=== PATIENT | female | born 1955 | race Caucasian/White ===

== ENCOUNTER → 2019-09-29 15:01 | Outpatient (BNVA) | payer OTHER, SELFPAY | PROVIDERS: Visit Provider Specialist | DX: M25.552 Pain in left hip (principal); T84.84XA Pain due to internal orthopedic prosthetic devices, implants and grafts, initial encounter | CPT/HCPCS: 73503 ==

== ENCOUNTER 2019-10-12 08:13 | Outpatient (CLI) | payer MEDICARE, OTHER, SELFPAY ==
--- NOTE | 2019-10-12 11:00 | NM_ITS ---
WS: [id number] Nuclear medicine whole body bone scan, three-phase emphasis on the hips, 10/12/2019 Clinical Data: Painful Orthopedic Hardware Comparison: Left hip, 09/29/2019. Findings: After the intravenous injection of 26.3 mCi of technetium 99m HDP blood flow imaging of the pelvis and hips were obtained. There was normal blood flow. Blood pool imaging in the anterior and posterior projection of the pelvis and hips showed normal bloo d flow. There is increased activity over the mid sternum, 2 anterior right ribs and 3 anterior left ribs. The re is also increased uptake over the lateral aspect of the right femoral condyle. The patient gives a history of a recent fall injuring her sternum and probably her ribs and right knee. There is no abno rmal activity over the left hip.There is a slight decrease in activity over the entire medullary oleksandr l of the left femur from the patient's intramedullary josse. NM/NM bone 3 phase [id number] Impression: 1. Increased activity over the sternum, anterior ribs and right lateral femoral condyle probably from a recent injury. 2. No abnormal activity over the left hip.
== END 2019-10-12 08:14 | disposition home or self-care (01) ==
LOC: RAD 08:19
PROVIDERS: Visit Provider Specialist
DX: T84.84XA Pain due to internal orthopedic prosthetic devices, implants and grafts, initial encounter (principal); Y83.8 Other surgical procedures as the cause of abnormal reaction of the patient, or of later complication, without mention of misadventure at the time of the procedure
CPT/HCPCS: 78315; A9561

== ENCOUNTER 2024-04-03 13:19 | Inpatient (IN) | payer MEDICARE, OTHER, SELFPAY ==
[2024-04-03] VITALS (13 sets, daily range): BP systolic 126–154; BP diastolic 70–86; PULSE 58–71; RESP 17–22; TEMP 36.6–36.9; O2SAT 94–100; BMI 33.0
--- NOTE | 2024-04-03 13:30 | XRR_ITS ---
PROCEDURE INFORMATION: Exam: XR Right Wrist Exam date and time: 04/03/2024 1:39 PM Age: 68 years old Clinical indication: Injury or trauma; Fall; Blunt trauma (contusions or hematomas); Wrist; Right; Prior surgery; Surgery date: 6+ months; Additional info: Fall/pain/previous surgery TECHNIQUE: Imaging protocol: Radiologic exam of the right wrist. Views: 3 or more views. COMPARISON: No relevant prior studies available. FINDINGS: Bones/joints: Acute fracture through distal shaft of radius, proximal to plate and screw fixation. Very minimal displacement. Bone mineralization is normal. Old fracture fixation of the distal radius noted. Old fracture of distal ulnar styloid process noted. Soft tissues: Normal. XR/XR wrist RT min 3V* [id number] IMPRESSION: Acute fracture through distal 3rd shaft of radius, proximal to plate and screw fixation.
--- NOTE | 2024-04-03 13:30 | XRR_ITS ---
PROCEDURE INFORMATION: Exam: XR Right Hip Exam date and time: 04/03/2024 1:44 PM Age: 68 years old Clinical indication: Injury or trauma; Fall; Blunt trauma (contusions or hematomas); Hip; Prior surgery; Surgery date: 6+ months; Surgery type: Left femur SX but pain today is on the right side; Additional info: With pelvis TECHNIQUE: Imaging protocol: Radiologic exam of the right hip. Views: 1 view hip with pelvis when performed. COMPARISON: No relevant prior studies available. FINDINGS: Bones/joints: Acute intertrochanteric fracture of right proximal femur with minimal impaction. No dislocation. Visualized left proximal femur show fixation hardware. Soft tissues: Unremarkable. XR/XR hip RT 2-3V wo/w pel* [id number] IMPRESSION: Acute intertrochanteric fracture of the right proximal femur with minimal impaction.
[2024-04-03] MEDS: HYDROmorphone 1 mg/mL INJ 1 mL 0.4 MG IVP (13:37)
--- NOTE | 2024-04-03 13:49 | W.ED.FALL ---
HPI - Fall General: Chief Complaint: Fall Stated Complaint: right hip/wrist pain s/p fall Time Seen by Provider: 04/03/24 13:26 Source: patient Mode of arrival: EMS Limitations: no limitations History of Present Illness: Patient is a 68-year-old female who presents the emergency department via ambulance due to a fall about an hour prior to arrival. Patient states she took too big of a step down a stepladder, lost her footing and fell onto her right hip and wrist. She has previous surgery to the right wrist, states pain is to the volar aspect just inferior to the wrist joint. She does seem to have mild external rotation of her right lower extremity and proximal femur is significantly painful. States initially pain was not too severe as she denied pain medicine by ambulance, however states that is increasing. She did not hit her head and has no other injuries to report with the fall. Is not on a blood thinner. Is requesting something for pain at this time. Upon further review of patient's medical history she does have a history of hip surgery to the left hip. complaint: fall Onset (ago): hour(s) Fall from: from height (distance) (A couple of feet, down a stepladder) Place fall occurred: home Loss of consciousness: None Prolonged down time: no Symptoms prior to fall: none Context: tripped/slipped Location of injury - extremities: Right: forearm and thigh Severity: severe Associated symptoms-after fall: Denies abdominal pain, chest pain, headache(s) or neck pain Related Data Home Medications Medication Instructions Recorded Confirmed No Known Home Medications 09/29/19 09/29/19 Allergies Allergy/AdvReac Type Severity Reaction Status Date / Time No Known Allergies Allergy Verified 09/29/19 15:15 Review of Systems General: Reports: 10 or more systems reviewed and unremarkable except in HPI and below Const: Reports: other (Fall); Denies: fever(s) or chills Card: Denies: chest pain Resp: Denies: dyspnea or productive cough GI: Denies: abdominal pain, nausea, vomiting or diarrhea : Denies: flank pain Musc: Reports: extremity pain (Right proximal femur), joint pain (Right wrist and right hip) and limited range of motion; Denies: neck pain, back pain, extremity swelling, joint swelling, joint redness, joint warmth or muscle weakness Skin/Breast: Denies: rash Neuro: Denies: headache(s), numbness in extremities or weakness in extremities PFSH ED PFSH: Social History Smoking and tobacco/nicotine status: never used tobacco/nicotine Alcohol intake: current Alcohol intake frequency: few times a week Substance/Drug Use: never Physical Exam Const: COMMON NORMALS: no acute distress, patient oriented x3, no limitations, healthy appearing, alert and well nourished HENMT: COMMON NORMALS: normocephalic and atraumatic HEAD & SCALP: normocephalic and atraumatic Neck/C-Spine: COMMON NORMALS: full ROM, supple and no meningeal signs Resp: COMMON NORMALS: normal respiratory effort, No use of accessory muscles and clear to auscultation bilaterally AUSCULTATION: clear to auscultation bilaterally Cardio: COMMON NORMALS: regular rate and regular rhythm RATE: regular rate RHYTHM: regular rhythm GI: COMMON NORMALS: Soft to palpation and non-tender PALPATION: Yes Soft to palpation Extremity: COMMON NORMALS: capillary refill normal, no joint enlargement and no clubbing, cyanosis or edema NARRATIVE EXTREMITY EXAM: There does seem to be chronic deformity of the right wrist from prior surgery/injury. Does currently have some tenderness to palpation of the volar aspect of the right wrist joint, possibly just inferior to this with no obvious signs of new trauma or deformity. Her distal neurovascular status in her right upper extremity is intact and she does have good radial pulse. Normal elbow examination. Her right lower extremity does appear to be mildly shortened and externally rotated. No significant tenderness to palpation of the lateral hip joint, though there is severe tenderness to palpation of the proximal femur. Distal neurovascular status also intact with the right lower extremity with no focal sensory deficits. Normal knee and ankle exam. All other joints palpated and normal. Neuro: COMMON NORMALS: patient oriented x3, moves all extremities, no focal motor deficits and no sensory deficits noted SENSORIUM/ORIENTATION: Yes alert MENINGEAL SIGNS: Yes no meningeal signs Skin: COMMON NORMALS: no rashes or lesions noted GENERAL SKIN EXAM: no rashes or lesions noted Course Vital Signs: Vital signs: Vital Signs Temperature 97.8 F 04/03/24 13:23 Pulse Rate 64 04/03/24 14:23 Respiratory Rate 17 04/03/24 14:23 Blood Pressure 128/70 04/03/24 14:23 Pulse Oximetry 100 04/03/24 14:23 Oxygen Delivery Me thod Room Air 04/03/24 14:23 MDM - Fall Medical Decision Making Patient brought in by ambulance after a fall about an hour prior to arrival. History of previous fracture and surgical fixation of the right wrist, of which she also injured today in the fall. Also has surgical history of left hip surgery many years ago. Right Leg did appear shortened and externally rotated on physical exam, distal neurovascular status intact. X-ray of the right hip did reveal a intertrochanteric fracture with mild impaction, nondisplaced. In addition, an x-ray of the right wrist showed intact hardware however a small distal third radius fracture that we will be splinted at this time with sugar-tong splint. Dr. Goodrich was consulted and will see the patient on Friday pending admission to the hospital. Spoke with Dr. Domingo who kindly accepts the patient for admission for pain control and routine monitoring until Friday. Patient informed of plan, family also informed in the room. They agree and all other questions and concerns addressed at this time. This case discussed with Dr. Franklin who agrees with admission plan at this time. Lab Data Radiology Impressions Hip/Pelvis X-Ray 04/03/24 13:30 IMPRESSION: Acute intertrochanteric fracture of the right proximal femur with minimal impaction. Wrist X-Ray 04/03/24 13:30 IMPRESSION: Acute fracture through distal 3rd shaft of radius, proximal to plate and screw fixation. All radiology interpretation(s) finalized by discharge Discharge Plan Discharge Patient Disposition: Admitted As Inpatient Clinical Impression: Closed right radial fracture Qualifiers: Encounter type: initial encounter Radius location: shaft Fracture morphology: unspecified fracture morphology Qualified Code(s): S52.301A - Unspecified fracture of shaft of right radius, initial encounter for closed fracture Closed right femoral fracture Qualifiers: Encounter type: initial encounter Femur location: intertrochanteric Fracture alignment: nondisplaced Qualified Code(s): S72.144A - Nondisplaced intertrochanteric fracture of right femur, initial encounter for closed fracture Condition: Stable Coding Level of Care Code ED Structural Test Engineer for Maryellen Melendez
--- NOTE | 2024-04-03 15:16 | P.HP_ITS ---
Providers/Chief Complaint Admitting Physician: Dr. Domingo Chief Complaint: right hip/wrist pain s/p fall History of Present Illness 68yo F with no significant presents to [facility] ED s/p mechanical fall. states she attempted to come down off a step ladder and too too big of of a step down and lost her footing. fell in a sideways direction and landed on her RIGHT hip and RIGHT wrist. no head trauma or LOC. Immediate pain. Hx of previous R wrist fracture requiring surgery. describes pain on volar aspect of wrist and R hip pain. limited ability to move hip. unable to stand at home. EMS contacted and brought pt to ED. XR confirmed fracture of both R distal radius and R hip. Dr. Goodrich consulted for mED and will take for surgery on 04/05/24. per patient pain is moderetely controlled. describes 8/10 intermittent hip pain, 6/10 wrist pain. Denies CP, palpitations, SOB, cough, N/V/D/C, abd pain, MANZANARES, vision changes, loss of sensation or strength in extremities Review of Systems Musc: Reports: joint pain (right hip and right wrist pain) Medications/Allergies Home Medications Medication Instructions Recorded Confirmed Last Taken Type No Known Home Medications 09/29/19 09/29/19 Unknown History Allergies Allergy/AdvReac Type Severity Reaction Status Date / Time No Known Allergies Allergy Verified 09/29/19 15:15 PFSH Acute PFSH: Social History Smoking and tobacco/nicotine status: never used tobacco/nicotine Alcohol intake: current Alcohol intake frequency: few times a week Substance/Drug Use: never Vitals/I&O/Wt Last Vital Signs Temp 97.8 F 04/03/24 13:23 Pulse 64 04/03/24 14:23 Resp 17 04/03/24 14:23 BP 128/70 04/03/24 14:23 Pulse Ox 100 04/03/24 14:23 O2 Del Method Room Air 04/03/24 14:23 Weight last 48 hrs Weight 230 lb Physical Exam Narrative: General: AOx3, no acute distress, well developed, well nourished, appears stated age psych: appropriate mood and affect. good judgment and insight. No suicidal or homicidal ideation. Head: atraumatic, normocephalic, no mass/lesions Eyes: conjunctiva clear w/o exudate or hemorrhage. non-icteric, EOM intact, PERRLA. no signs of nystagmus Nose: nasal mucosa pink, septum midline Oropharynx: good dentition CVD: RRR, normal S1 and S2, no M/R/G. 2+ pulse x 4 extremities, no JVD, no carot id bruit. Lungs: clear lung sounds in all pacheco, no rhonchi, wheezing, rales. Abdomen: NT, ND, soft, NABS. No hepatosplenomegaly, Extremities: R hip: foot shortened and externally rotated. ttp lateral and anterior hip R Knee: limited ROM 2/2 hip. no ttp on examination R wrist: limited RO. ttp on volar aspect of wrist, visible radial swelling and ttp R elbow: FROM Neuro: CNII-XII grossly intact. No atrophy, weakness, tremors or clonus.? 2+ DTR, no sensory abnormalities. Skin:? no rash, vesicles, lesions. A&P Assessment and plan (1) Closed intertrochanteric fracture of right hip: (2) Distal radius fracture, right: Plan Assessment Acute intertrochanteric fracture of the right proximal femur with minimal impaction. Acute fracture through distal 3rd shaft of radius, proximal to plate and screw fixation. Plan -admit to [facility] -will get base bloodwork -Consulted Dr. Goodrich. to perform surgery on 04/05/24. will see tomorrow -R arm in sugar tong splint -pain regiment in place, received dilautid in ED -full diet -non-weight bearing, fall precautions -started on heparin drip. stop 8hrs prior to surgery -purewick. paulette tirado FULL code heparin drip - turn off 8hrs prior to surgery Attestations Medical Necessity Statement*: will require 2 overnight stays for surgical correction of fractures Coding Level of Care Code 21439 Diagnoses Closed intertrochanteric fracture of right hip S72.141A Distal radius fracture, right S52.501A
[2024-04-03] MEDS: HYDROcodone-acetaminophen 5-325 mg Tablet 1 TAB PO ×2 (17:23→21:25)
[2024-04-03] MEDS: heparin 5,000 unit/mL INJ 1 mL 5000 UNIT SUBCUT (17:24)
[2024-04-03 18:15] LABS: Basophils # 0.1 10^3/uL (0.0-0.1); Basophils % 0.4 %; Eosinophils % 0.4 %; Hematocrit 42.4 % (36-47); Lymphocytes # 1.3 10^3/uL (0.8-4.8); Lymphocytes % 11.7 %; Mean Corpuscular HGB Conc 32.5 g/dL (30-55); Mean Corpuscular Hemoglobin 30.5 pg (27-33); Mean Corpuscular Volume 93.8 fl (85-98); Mean Platelet Volume 9.5 fL (7.4-10.4); Monocytes # 0.5 10^3/uL (0.2-0.9); Monocytes % 4.4 %; Neutrophils # 9.26 10^3/uL (1.8-7.7); Neutrophils % 82.7 %; Nucleated Red Blood Cells % 0 %; Platelet Count 258 10^3/cmm (157-399); Red Blood Count 4.52 10^6/uL (3.85-5.65); Red Cell Distribution Width 13.4 % (12.1-15.1)
[2024-04-03 18:31] LABS: Alanine Aminotransferase 11 U/L (0-33); Albumin Level 4.2 g/dL (3.5-5.2); Alkaline Phosphatase 101 U/L (35-105); Blood Urea Nitrogen 21 mg/dL (8-23); Calcium 10.2 mg/dL (8.5-10.5); Carbon Dioxide 19 mmol/L (22-29); Chloride 104 mmol/L (98-107); Creatinine Clr Calc Pharmacy 85.5627; Globulin 3.7 g/dL (1.3-4.6); Glomerular Filtration Rate 70.9 mL/min (90-130); Glucose 102 mg/dL (65-115); Osmolality Calculated 289 mOsm/kg (285-295); Sodium 138 mmol/L (136-145); Total Bilirubin 0.5 mg/dL (0.15-1.2); Total Protein 7.9 g/dL (6.6-8.7)
[2024-04-03 18:35] LABS: Anion Gap 19.3 (5-19); Aspartate Amino Transferase 48 U/L (0-32); Potassium 4.3 mmol/L (3.5-5.1)
[2024-04-04] VITALS (9 sets, daily range): BP systolic 120–138; BP diastolic 61–77; PULSE 70–88; RESP 16–18; TEMP 36.8–37.1; O2SAT 94–97
[2024-04-04] MEDS: HYDROcodone-acetaminophen 5-325 mg Tablet 1 TAB PO ×2 (03:37→07:58)
[2024-04-04] MEDS: heparin 5,000 unit/mL INJ 1 mL 5000 UNIT SUBCUT ×2 (03:38→15:25)
[2024-04-04] MEDS: pantoprazole DR 40 mg Tablet PO (07:58)
[2024-04-04] MEDS: HYDROmorphone 1 mg/mL INJ 1 mL 0.4 MG IVP ×2 (10:48→16:57)
--- NOTE | 2024-04-04 11:34 | P.CONIM_ITS ---
Providers/Reason For Consult 2 Consulting Physician/Specialty*: Hospitalist Reason for Consult*: Hip and wrist fracture Attending Physician: Harry Ramirez MD History of Present Illness History of Present Illness Jeannette Ackerman is a 68 year old femaleattempted to come down off a step ladder and too too big of of a step down and lost her footing. fell in a sideways direction and landed on her RIGHT hip and RIGHT wrist. no head trauma or LOC. Immediate pain. Hx of previous R wrist fracture requiring surgery. describes pain on volar aspect of wrist and R hip pain. limited ability to move hip. Review of Systems 2 Musc: Reports: joint pain (right hip and right wrist pain) Medications/Allergies Home Medications Medication Instructions Recorded Confirmed Last Taken Type No Known Home Medications 09/29/19 04/03/24 Unknown History Allergies Allergy/AdvReac Type Severity Reaction Status Date / Time No Known Allergies Allergy Verified 09/29/19 15:15 Current Medications Generic Name Dose Route Start Last Admin Trade Name Freq PRN Reason Stop Dose Admin Hydrocodone Bitart/Acetaminophen 1 tab 04/03/24 15:52 04/04/24 07:58 Hydrocodone-Acetaminophen 5-325 Mg Tablet PO 1 tab Q4H PRN Administration MODERATE TO SEVERE PAIN Heparin Sodium (Porcine) 5,000 unit 04/03/24 16:00 04/04/24 03:38 Heparin 5,000 Unit/Ml Inj 1 Ml SUBCUT 5,000 unit Q12H IRLANDA Administration Hydromorphone HCl 0.4 mg 04/04/24 10:41 04/04/24 10:48 Hydromorphone 1 Mg/Ml Inj 1 Ml IVP 0.4 mg Q4H PRN Administration MODERATE TO SEVERE PAIN Pantoprazole Sodium 40 mg 04/04/24 09:00 04/04/24 07:[address] 40 Mg Tablet PO 40 mg DAILY IRLANDA Administration PFSH Acute 2 PFSH: Social History Smoking and tobacco/nicotine status: never used tobacco/nicotine Alcohol intake: current Alcohol intake frequency: few times a week Substance/Drug Use: never Vitals/I&O/Wt Last Vital Signs Temp 98.3 F 04/04/24 07:41 Pulse 74 04/04/24 07:41 Resp 18 04/04/24 10:48 BP 138/77 04/04/24 07:41 Pulse Ox 96 04/04/24 10:48 O2 Del Method Room Air 04/04/24 07:41 04/03/24 04/04/24 04/04/24 22:59 06:59 14:59 Intake Total 360 / 360 Output Total 600 / 600 Balance -600 / -600 360 / 360 Weight last 48 hrs Weight 250 lb Weight 230 lb Weight 230 lb Physical Exam 2 Narrative: Currently sitting up in bed eating breakfast. Patient is pain is controlled at this time. Urinary Catheter Management: Stephens: Cath Placed During This Visit: yes Reason for Continuing Indwelling Catheter: Perioperative Use in Selected Surgeries Urinary Catheter Date of Insertion: 04/03/24 Urinary Catheter Time of Insertion: 22:42 Data 04/03/24 18:06 04/03/24 18:06 A&P Assessment and plan (1) Closed intertrochanteric fracture of right hip: Plan to do a hip nail tomorrow. Treat the wrist in a brace. N.p.o. after midnight Qualifiers: Encounter type: initial encounter Fracture alignment: displaced Qualified Code(s): S72.141A - Displaced intertrochanteric fracture of right femur, initial encounter for closed fracture Consult Attestations 2 Medical Necessity Statement: Per primary service Coding Level of Care Code Acute Code for Chg Fwd Diagnoses Closed displaced intertrochanteric fracture of right femur, initial encounter S72.141A Encounter type: initial encounter Fracture alignment: displaced
--- NOTE | 2024-04-04 12:25 | P.PN_ITS ---
Subjective 2 Subjective: Patient endorsing pain, added Dilaudid Going for surgical intervention tomorrow Vitals/I&O/Wt Last Vital Signs Temp 98.3 F 04/04/24 12:00 Pulse 88 04/04/24 12:00 Resp 16 04/04/24 12:00 BP 123/61 04/04/24 12:00 Pulse Ox 94 04/04/24 12:00 O2 Del Method Room Air 04/04/24 12:00 04/03/24 04/04/24 04/04/24 22:59 06:59 14:59 Intake Total 360 / 360 Output Total 600 / 600 Balance -600 / -600 360 / 360 Weight last 48 hrs Weight 113.398 kg Weight 104.326 kg Weight 104.326 kg Physical Exam 2 Narrative: Patient is laying supine Arm is in sling Hemodynamic stable Stephens catheter in place Currently on room air GCS 15 Awake and alert S1, S2 Abdomen soft Urinary Catheter Management: Stephens: Cath Placed During This Visit: yes Reason for Continuing Indwelling Catheter: Perioperative Use in Selected Surgeries Urinary Catheter Date of Insertion: 04/03/24 Urinary Catheter Time of Insertion: 22:42 Data 04/03/24 18:06 04/03/24 18:06 A&P Assessment and plan (1) Closed right radial fracture: Qualifiers: Encounter type: initial encounter Fracture morphology: unspecified fracture morphology Radius location: shaft Qualified Code(s): S52.301A - Unspecified fracture of shaft of right radius, initial encounter for closed fracture (2) Distal radius fracture, right: (3) Closed right femoral fracture: Qualifiers: Encounter type: initial encounter Femur location: intertrochanteric F racture alignment: nondisplaced Qualified Code(s): S72.144A - Nondisplaced intertrochanteric fracture of right femur, initial encounter for closed fracture (4) Closed intertrochanteric fracture of right hip: Qualifiers: Encounter type: initial encounter Fracture alignment: displaced Qualified Code(s): S72.141A - Displaced intertrochanteric fracture of right femur, initial encounter for closed fracture Plan N.p.o. after midnight For pain management added Dilaudid for on as-needed basis Added bowel regimen Stephens catheter in place No need of IV fluids for today DVT prophylaxis: SCDs Hold DVT prophylaxis starting classroom assistant tomorrow Appreciate Dr. Goodrich's recommendations Attestations 2 Medical Necessity Statement*: Surgical intervention tomorrow Diagnoses Closed right radial fracture S52.301A Encounter type: initial encounter Fracture morphology: unspecified fracture morphology Radius location: shaft Distal radius fracture, right S52.501A Closed right femoral fracture S72.144A Encounter type: initial encounter Femur location: intertrochanteric Fracture alignment: nondisplaced Closed displaced intertrochanteric fracture of right femur, initial encounter S72.141A Encounter type: initial encounter Fracture alignment: displaced
--- NOTE | 2024-04-04 12:28 | ECG_ITS ---
[facility] Test Date: 2024-04-04 Pat Name: Jeannette Ackerman Department: Room: 252 Gender: Female Director Of Infection Control: : 1955 Requested By: Harry Ramirez Order Number: [id number] Ninfa MD: Rodriguez Medellin M.D. Measurements Intervals [place] Rate: 84 P: 56 MD: 177 QRS: 30 QRSD: 94 T: 37 QT: 369 QTc: 438 Interpretive Statements SINUS RHYTHM LOW QRS VOLTAGE IN PRECORDIAL LEADS [QRS DEFLECTION < 1.0 mV IN CHEST LEADS] Compared to ECG 04/11/2016 18:38:11 Low QRS voltage now present Electronically Signed On 04-04-2024 17:44:08 CDT by Rodriguez Medellin M.D. [id number]
[2024-04-04] MEDS: oxyCODONE-APAP 5-325 mg Tablet 1 TAB PO (13:02)
[2024-04-04] MEDS: docusate sodium 100 mg Capsule PO (16:56)
[2024-04-04] MEDS: ondansetron 2 mg/ML SDV 2 mL 4 MG IVP (22:04)
[2024-04-05] VITALS (23 sets, daily range): BP systolic 122–143; BP diastolic 72–84; PULSE 68–84; RESP 15–19; TEMP 36.3–37.2; O2SAT 91–100
--- NOTE | 2024-04-05 | XR_ITS ---
WS: [id number] C-ARM RADIOGRAPHS RIGHT HIP; 3 IMAGES HISTORY: HORTENCIA BARONE COMPARISON: 04/03/2024 Intraoperative imaging during fixation of a RIGHT hip fracture. Fracture in good position and alignme nt. XR/XR hip RT 2-3V wo/w pel* [id number] IMPRESSION: Intraoperative fixation RIGHT hip fracture.
[2024-04-05] MEDS: HYDROmorphone 1 mg/mL INJ 1 mL 0.4 MG IVP ×3 (03:36→23:10)
[2024-04-05 06:21] LABS: Basophils % 0.5 %; Eosinophils # 0.1 10^3/uL (0.0-0.8); Eosinophils % 1.1 %; Hematocrit 35.7 % (36-47); Lymphocytes # 1.5 10^3/uL (0.8-4.8); Lymphocytes % 19.9 %; Mean Corpuscular HGB Conc 31.4 g/dL (30-55); Mean Corpuscular Hemoglobin 29.4 pg (27-33); Mean Corpuscular Volume 93.7 fl (85-98); Mean Platelet Volume 9.7 fL (7.4-10.4); Monocytes # 0.7 10^3/uL (0.2-0.9); Monocytes % 8.9 %; Neutrophils # 5.05 10^3/uL (1.8-7.7); Neutrophils % 69.2 %; Nucleated Red Blood Cells % 0 %; Platelet Count 223 10^3/cmm (157-399); Red Blood Count 3.81 10^6/uL (3.85-5.65); Red Cell Distribution Width 13.4 % (12.1-15.1)
[2024-04-05 06:38] LABS: Blood Urea Nitrogen 14 mg/dL (8-23); Calcium 9.3 mg/dL (8.5-10.5); Carbon Dioxide 26 mmol/L (22-29); Chloride 101 mmol/L (98-107); Creatinine Clr Calc Pharmacy 89.8735; Glomerular Filtration Rate 82.7 mL/min (90-130); Glucose 138 mg/dL (65-115); Osmolality Calculated 283 mOsm/kg (285-295); Sodium 135 mmol/L (136-145)
[2024-04-05] MEDS: docusate sodium 100 mg Capsule PO (08:16)
[2024-04-05] MEDS: oxyCODONE-APAP 5-325 mg Tablet 1 TAB PO ×2 (08:16→21:08)
[2024-04-05] MEDS: pantoprazole DR 40 mg Tablet PO (08:16)
--- NOTE | 2024-04-05 10:14 | P.PN_ITS ---
Subjective 2 Subjective: No overnight events Patient endorsing pain well-managed at this point Going for surgical intervention today Lives with her at home Vitals/I&O/Wt Last Vital Signs Temp 98.4 F 04/05/24 07:59 Pulse 84 04/05/24 07:59 Resp 17 04/05/24 08:16 BP 130/72 04/05/24 07:59 Pulse Ox 94 04/05/24 08:16 O2 Del Method Room Air 04/05/24 07:59 04/04/24 04/05/24 04/05/24 22:59 06:59 14:59 Intake Total 480 / 1080 Output Total 650 / 650 750 / 1400 Balance -170 / 430 -750 / -320 Weight last 48 hrs Weight 114.759 kg Weight 113.398 kg Weight 104.326 kg Weight 104.326 kg Physical Exam 2 Narrative: Pleasant cooperative Laying supine GCS 15 Nonfocal neuroexam Awake and alert Currently on room air Urinary Catheter Management: Stephens: Cath Placed During This Visit: yes Reason for Continuing Indwelling Catheter: Perioperative Use in Selected Surgeries Urinary Catheter Date of Insertion: 04/03/24 Urinary Catheter Time of Insertion: 22:42 Data 04/05/24 05:41 04/05/24 05:41 A&P Assessment and plan (1) Closed right radial fracture: Qualifiers: Encounter type: initial encounter Fracture morphology: unspecified fracture morphology Radius location: shaft Qualified Code(s): S52.301A - Unspecified fracture of shaft of right radius, initial encounter for closed fracture (2) Distal radius fracture, right: (3) Closed right femoral fracture: Qualifiers: Encounter type: initial encounter Femur location: intertrochanteric F racture alignment: nondisplaced Qualified Code(s): S72.144A - Nondisplaced intertrochanteric fracture of right femur, initial encounter for closed fracture (4) Closed intertrochanteric fracture of right hip: Qualifiers: Encounter type: initial encounter Fracture alignment: displaced Qualified Code(s): S72.141A - Displaced intertrochanteric fracture of right femur, initial encounter for closed fracture Plan Plan for surgical intervention today Will do PT evaluation after her surgery Most likely will go home with home health Will remove Stephens catheter after surgery today as well Hemodynamically stable Currently on room air Pain well-managed Full code N.p.o. Start DVT prophylaxis and diet after the procedure today Attestations 2 Medical Necessity Statement*: Likely discharge in next 24 hours Diagnoses Closed right radial fracture S52.301A Encounter type: initial encounter Fracture morphology: unspecified fracture morphology Radius location: shaft Distal radius fracture, right S52.501A Closed right femoral fracture S72.144A Encounter type: initial encounter Femur location: intertrochanteric Fracture alignment: nondisplaced Closed displaced intertrochanteric fracture of right femur, initial encounter S72.141A Encounter type: initial encounter Fracture alignment: displaced
--- NOTE | 2024-04-05 10:32 | PC.CHAP ---
Pastoral Care Encounter/Spiritual Assessment Type of Contact [] Declined roof fitter visit [] Patient/Family/Request visit [] Outpatient visit [] Follow-up visit [] Physician referral [] Code/Alert [x] Routine visit [] Staff referral [] Actively dying [x] Patient sleeping [] Family support [] [] Out of room [] Palliative care [] [] Receiving care in room [] Pre-surgical visit [] Trauma [] Long length of stay [] ICU visit [] Other: Relational/Emotional Strength [] Patient feels connected with others/family/visitors/staff [] Distress [] Loneliness/isolation [] Abandonment Spirituality of Patient [] Person of Sue [] Attends Gnosticism of their Sue [] Believes in Prayer [] Reads Bible or Faith materials [] There are Spiritual issues to be addressed Quality Systems Engineer Interventions [x] Prayer [] Active listening [] Non-anxious presence [] Spiritual/emotional support [] Crisis/trauma care [] Spiritual counseling [] Bereavement support [] Provided bereavement packet [] Provided Bible/devotional materials [] Provided toy/stuffed animal, coloring book to patient or family member [] Provided Communion [] Anointing/[place] [] Salvation [] Completed spiritual assessment [] Other: Impact on Illness or Injury [] Angry [] Fearful [] Anxious [] Often cries [] Exhaustion [] Unable to work [] Unable to attend mandaeism [] Unable to walk/stand [] Unable to read [] Unable to drive [] Unable to eat/drink [] Unable to sleep [] Unable to be with family [] Patient intubated [] Other: Summary Time spent with patient
[2024-04-05] MEDS: acetaminophen 325 mg Tablet 650 MG PO (10:56)
--- NOTE | 2024-04-05 12:26 | W.PM.OPSUD ---
Surgery/Procedure H&P Update DATE OF PROCEDURE: April 05, 2024 DATE H&P PERFORMED: 04/04/24 H&P UPDATE INFORMATION: I have reviewed H&P completed within last 30 days, I have examined patient prior to procedure and No changes to prior documentation PLANNED PROCEDURE: Operation Date: 04/05/24 15:40 Proposed Procedures p Trochanteric Femoral Nail(Right) - Dustin Goodrich DO
--- NOTE | 2024-04-05 14:01 | ANES.PREANE2 ---
Pre-Anesthetic Assessment Height/Weight: Height 5 ft 10 in Weight 253 lb Temp Pulse Resp BP Pulse Ox O2 Del Method 98.3 F 78 17 130/74 96 Room Air 04/05/24 12:00 04/05/24 12:00 04/05/24 12:00 04/05/24 12:00 04/05/24 12:00 04/05/24 12:00 Preop Diagnosis: Hip fracture Operation Date: 04/05/24 15:40 Proposed Procedures p Trochanteric Femoral Nail(Right) - Dustin H Joleen, DO Social No alcohol and No tobacco Exam alert, oriented x 3, clear to auscultation bilaterally and regular rate & rhythm Airway Submandibular: within normal limits Cervical ROM: within normal limits Mallampati: Class II Dentition: full and other (Overbite noted) Anesthetic Plan ASA status: 1 Anesthesia: General Other: No prior issues with anesthesia NPO since yesterday Labs 04/05 reviewed and assessable for surgery Patient takes no medications at baseline Denies any pulmonary or cardiac issues Plan for general anesthesia Medications/Allergies Home Medications Medication Instructions Recorded Confirmed Last Taken Type No Known Home Medications 09/29/19 04/03/24 Unknown History Allergies Allergy/AdvReac Type Severity Reaction Status Date / Time No Known Allergies Allergy Verified 09/29/19 15:15 Current Medications Generic Name Dose Route Start Last Admin Trade Name Adityaq PRN Reason Stop Dose Admin Acetaminophen 650 mg 04/03/24 15:52 04/05/24 10:56 Acetaminophen 325 Mg Tablet PO 650 mg Q6H PRN Administration Mild/Mod Pain Or Temp >/= 101 Docusate Sodium 100 mg 04/04/24 18:00 04/05/24 08:16 Docusate Sodium 100 Mg Capsule PO 100 mg BID IRLANDA Administration Heparin Sodium (Porcine) 5,000 unit 04/03/24 16:00 04/04/24 15:25 Heparin 5,000 Unit/Ml Inj 1 Ml SUBCUT 5,000 unit Q12H IRLANDA Administration Hydromorphone HCl 0.4 mg 04/04/24 10:41 04/05/24 03:36 Hydromorphone 1 Mg/Ml Inj 1 Ml IVP 0.4 mg Q4H PRN Administration MODERATE TO SEVERE PAIN Ondansetron HCl 4 mg 04/03/24 15:52 04/04/24 22:04 Ondansetron 2 Mg/Ml Sdv 2 Ml IVP 4 mg Q8H PRN Administration vomiting, or N/V if npo Oxycodone/Acetaminophen 1 tab 04/04/24 12:27 04/05/24 08:16 Oxycodone-Apap 5-325 Mg Tablet PO 1 tab Q4H PRN Administration MODERATE PAIN Pantoprazole Sodium 40 mg 04/04/24 09:00 04/05/24 08:[address] 40 Mg Tablet PO 40 mg DAILY IRLANDA Administration [facility] Anesthesia Social History Smoking and tobacco/nicotine status: never used tobacco/nicotine Alcohol intake: current Alcohol intake frequency: few times a week Substance/Drug Use: never Data Anesthesia 04/05/24 05:41 04/05/24 05:41 Short CBC 04/03/24 04/05/24 Range/Units 18:06 05:41 WBC 11.20 7.30 (3.29-11.43) 10^3/uL Hgb 13.80 11.20 L (11.27-16.99) g/dL Hct 42.4 35.7 L (36-47) % MCV 93.8 93.7 (85-98) fl Plt Count 258 223 (157-399) 10^3/cmm Neut % (Auto) 82.7 69.2 % Neut # (Auto) 9.26 H 5.05 (1.8-7.7) 10^3/uL BMP 04/03/24 04/05/24 18:06 05:41 Sodium 138 135 L Potassium 4.3 4.0 Chloride 104 101 Carbon Dioxide 19 L 26 BUN 21 14 Creatinine 0.8 0.7 Glucose 102 138 H Calcium 10.2 9.3 Liver Function 04/03/24 Range/Units 18:06 Total Bilirubin 0.5 (0.15-1.2) mg/dL AST 48 H (0-32) U/L ALT 11 (0-33) U/L Alkaline Phosphatase 101 (35-105) U/L Albumin 4.2 (3.5-5.2) g/dL Cardiac Studies: No Data to Display
[2024-04-05] MEDS: sodium chloride 0.9% 1,000 ML 30 ML IV (15:01)
[2024-04-05] MEDS: ondansetron 2 mg/ML SDV 2 mL 4 MG IVP (15:23)
[2024-04-05] MEDS: fentaNYL 50 mcg/mL INJ 2mL IVP ×2 (15:25→17:10)
[2024-04-05] MEDS: ceFAZolin 2,000 mg SDV 2000 MG IVP ×2 (15:49→23:10)
--- NOTE | 2024-04-05 16:06 | PC.SOCIAL ---
IMM Updated Updated pt on IMM. No questions voiced. Provided pt a copy. Initialed, dated, & timed a copy & placed in chart.
--- NOTE | 2024-04-05 17:00 | P.OP_ITS ---
Operative Report Date of procedure: April 05, 2024 Pre-op diagnosis: 1. Right intertrochanteric hip fracture 2. Right radius fracture Post-op diagnosis: same Procedure done: 1. Right hip nail 2. Nonop treatment right radius fracture Surgeon: Dustin Goodrich DO Estimated blood loss (mL): 25 Procedure: 1. Right hip nail 2. Nonop treatment right radius fracture Patient brought to the procedure after an [place] was placed in the supine position on the [place] table. All his impingement well-padded. Patient was prepped and draped in this same sterile fashion. Skin incision is made proximal to the greater trochanter. Starting pin was inserted opening reamer was inserted the Arthrex nail was inserted. This is a 300 x 10 nail. With a 30 degree neck angle. The nail was placed in the prone position. Then tension was brought to placing the lag screw. Wire was placed in the center center position of the femoral head. The hip was then drilled and then the last year was placed. And compressed. Next tension was brought to placing the distal locking screw. This is done through the 3 guide skin incision made guide was placed hole was drilled and a 40 mm screw was placed. AP lateral fluoroscopy ensured that the hardware and fracture in good position. Wounds were irrigated closed with Vicryl and tati. Sterile dressings were applied Patient's distal radius is splinted this to be treated nonoperatively.
--- NOTE | 2024-04-05 17:38 | ANE.PACU2 ---
Inpatient post-anesthesia follow up: Airway intact: Yes Vital signs: Temperature 97.8 F Pulse Rate 74 Respiratory Rate 18 Blood Pressure 133/84 Pulse Oximetry 96 Oxygen Delivery Me thod Room Air Oxygen Flow Rate Fraction of Inspir ed Oxygen Hydration adequate: Yes Nausea and vomiting: No Pain level: 1 Mental status: Baseline
[2024-04-06] VITALS (12 sets, daily range): BP systolic 122–144; BP diastolic 65–80; PULSE 87–113; RESP 16–18; TEMP 36.6–37.2; O2SAT 91–95
[2024-04-06 04:48] LABS: Basophils % 0.1 %; Hematocrit 34.6 % (36-47); Lymphocytes # 1.4 10^3/uL (0.8-4.8); Mean Corpuscular HGB Conc 31.8 g/dL (30-55); Mean Corpuscular Hemoglobin 29.8 pg (27-33); Mean Corpuscular Volume 93.8 fl (85-98); Mean Platelet Volume 9.9 fL (7.4-10.4); Monocytes # 0.8 10^3/uL (0.2-0.9); Monocytes % 8.6 %; Neutrophils # 7.38 10^3/uL (1.8-7.7); Neutrophils % 76.9 %; Nucleated Red Blood Cells % 0 %; Platelet Count 216 10^3/cmm (157-399); Red Blood Count 3.69 10^6/uL (3.85-5.65); Red Cell Distribution Width 13.2 % (12.1-15.1); White Blood Count 9.61 10^3/uL (3.29-11.43)
[2024-04-06] MEDS: HYDROmorphone 1 mg/mL INJ 1 mL 0.4 MG IVP ×4 (04:50→21:26)
[2024-04-06] MEDS: heparin 5,000 unit/mL INJ 1 mL 5000 UNIT SUBCUT (04:50)
[2024-04-06] MEDS: ceFAZolin 2,000 mg SDV 2000 MG IVP ×2 (06:21→15:10)
--- NOTE | 2024-04-06 07:41 | P.PN_ITS ---
Subjective 2 Subjective: Patient is doing well pain controlled resting in bed. Vitals/I&O/Wt Last Vital Signs Temp 98.8 F 04/06/24 04:00 Pulse 87 04/06/24 04:00 Resp 16 04/06/24 04:50 BP 122/65 04/06/24 04:00 Pulse Ox 91 04/06/24 04:00 O2 Del Method Room Air 04/06/24 04:00 04/05/24 04/06/24 04/06/24 22:59 06:59 14:59 Intake Total 546.5 / 546.5 480 / 1026.5 Output Total 675 / 1200 675 / 1875 Balance -128.5 / -653.5 -195 / -848.5 Weight last 48 hrs Weight 253 lb 9.6 oz Weight 253 lb Physical Exam 2 Narrative: Patient resting in bed pain controlled Urinary Catheter Management: Stephens: Cath Placed During This Visit: yes, but has since been removed by the nurse Reason for Continuing Indwelling Catheter: Decision to DC Catheter Urinary Catheter Date of Insertion: 04/03/24 Urinary Catheter Time of Insertion: 22:42 Date Urinary Catheter Removed: 04/06/24 Time Urinary Catheter Discontinued: 05:18 Data 04/06/24 04:22 04/05/24 05:41 A&P Assessment and plan (1) Closed intertrochanteric fracture of right hip: Postop day #1 right hip nail. Right distal radius fracture Weight-bear as tolerated right lower extremity nonweightbearing right upper extremity Eliquis for DVT prophylaxis Qualifiers: Encounter type: initial encounter Fracture alignment: displaced Qualified Code(s): S72.141A - Displaced intertrochanteric fracture of right femur, initial encounter for closed fracture Attestations 2 Medical Necessity Statement*: Per primary service Coding Level of Care Code Acute Code for Chg Fwd Diagnoses Closed displaced intertrochanteric fracture of right femur, initial encounter S72.141A Encounter type: initial encounter Fracture alignment: displaced
[2024-04-06] MEDS: docusate sodium 100 mg Capsule PO ×2 (09:06→17:33)
[2024-04-06] MEDS: oxyCODONE-APAP 5-325 mg Tablet 1 TAB PO ×2 (09:06→17:33)
[2024-04-06] MEDS: pantoprazole DR 40 mg Tablet PO (09:06)
[2024-04-06] MEDS: apixaban 5 mg Tablet 2.5 MG PO ×2 (09:06→21:26)
--- NOTE | 2024-04-06 11:31 | P.PN_ITS ---
Subjective 2 Subjective: Patient was asking for another pain medication she just finished PT, asking for [facility]iary placement Not able to take care of her at home transport manager is aware Notified nurse to give her another pain medication at this point Vitals/I&O/Wt Last Vital Signs Temp 98.9 F 04/06/24 08:00 Pulse 92 04/06/24 08:00 Resp 17 04/06/24 11:09 BP 135/80 04/06/24 08:00 Pulse Ox 93 04/06/24 11:09 O2 Del Method Room Air 04/06/24 08:00 04/05/24 04/06/24 04/06/24 22:59 06:59 14:59 Intake Total 546.5 / 546.5 480 / 1026.5 360 / 360 Output Total 675 / 1200 675 / 1875 Balance -128.5 / -653.5 -195 / -848.5 360 / 360 Weight last 48 hrs Weight 115.031 kg Weight 114.759 kg Physical Exam 2 Narrative: Patient looks euvolemic Stephens catheter moved Awake and alert Pleasant cooperative GCS 15 Complaining of pain after PT S1, S2 Hypertension Currently on room air Urinary Catheter Management: Stephens: Cath Placed During This Visit: yes, but has since been removed by the nurse Reason for Continuing Indwelling Catheter: Decision to DC Catheter Urinary Catheter Date of Insertion: 04/03/24 Urinary Catheter Time of Insertion: 22:42 Date Urinary Catheter Removed: 04/06/24 Time Urinary Catheter Discontinued: 05:18 Data 04/06/24 04:22 04/05/24 05:41 A&P Assessment and plan (1) Closed right radial fracture: Qualifiers: Encounter type: initial encounter Fracture morphology: unspecified fracture morphology Radius location: shaft Qualified Code(s): S52.301A - Unspecified fracture of shaft of right radius, initial encounter for closed fracture (2) Distal radius fracture, right: (3) Closed right femoral fracture: Qualifiers: Encounter type: initial encounter Femur location: intertrochanteric F racture alignment: nondisplaced Qualified Code(s): S72.144A - Nondisplaced intertrochanteric fracture of right femur, initial encounter for closed fracture (4) Closed intertrochanteric fracture of right hip: Qualifiers: Encounter type: initial encounter Fracture alignment: displaced Qualified Code(s): S72.141A - Displaced intertrochanteric fracture of right femur, initial encounter for closed fracture Plan Patient will get DVT prophylaxis with [facility] To stating that she is not able to take care of herself and her at home for now Blood pressure elected related to pain after PT today Stephens catheter has been removed Full code Continue regular diet Continue PT/OT Attestations 2 Medical Necessity Statement*: Awaiting placement Diagnoses Closed right radial fracture S52.301A Encounter type: initial encounter Fracture morphology: unspecified fracture morphology Radius location: shaft Distal radius fracture, right S52.501A Closed right femoral fracture S72.144A Encounter type: initial encounter Femur location: intertrochanteric Fracture alignment: nondisplaced Closed displaced intertrochanteric fracture of right femur, initial encounter S72.141A Encounter type: initial encounter Fracture alignment: displaced
[2024-04-07] VITALS: BP 136/75; PULSE 94; RESP 17; TEMP 36.7; O2SAT 93
[2024-04-07 04:00] VITALS: BP 127/77; PULSE 110; RESP 19; TEMP 37.3; O2SAT 93
[2024-04-07 08:00] VITALS: BP 145/74; PULSE 101; RESP 18; TEMP 37.3; O2SAT 93
[2024-04-07] MEDS: pantoprazole DR 40 mg Tablet PO (08:55)
[2024-04-07] MEDS: apixaban 5 mg Tablet 2.5 MG PO (08:55)
[2024-04-07] MEDS: docusate sodium 100 mg Capsule PO (08:56)
[2024-04-07] MEDS: ondansetron 2 mg/ML SDV 2 mL 4 MG IVP (09:22)
--- NOTE | 2024-04-07 09:22 | PC.CHAP ---
Pastoral Care Encounter/Spiritual Assessment Type of Contact [] Declined keyseating machine set up operator visit [] Patient/Family/Request visit [] Outpatient visit [] Follow-up visit [] Physician referral [] Code/Alert [] Routine visit [] Staff referral [] Actively dying [] Patient sleeping [] Family support [] [] Out of room [] Palliative care [] [x] Receiving care in room [] Pre-surgical visit [] Trauma [] Long length of stay [] ICU visit [] Other: Relational/Emotional Strength [] Patient feels connected with others/family/visitors/staff [] Distress [] Loneliness/isolation [] Abandonment Spirituality of Patient [] Person of Sue [] Attends Pentecostal of their Sue [] Believes in Prayer [] Reads Bible or Moravian materials [] There are Spiritual issues to be addressed Echocardiograph Tech Interventions [] Prayer [] Active listening [] Non-anxious presence [] Spiritual/emotional support [] Crisis/trauma care [] Spiritual counseling [] Bereavement support [] Provided bereavement packet [] Provided Bible/devotional materials [] Provided toy/stuffed animal, coloring book to patient or family member [] Provided Communion [] Anointing/[place] [] Salvation [] Completed spiritual assessment [] Other: Impact on Illness or Injury [] Angry [] Fearful [] Anxious [] Often cries [] Exhaustion [] Unable to work [] Unable to attend shinto [] Unable to walk/stand [] Unable to read [] Unable to drive [] Unable to eat/drink [] Unable to sleep [] Unable to be with family [] Patient intubated [] Other: Summary Time spent with patient
[2024-04-07] MEDS: HYDROmorphone 1 mg/mL INJ 1 mL 0.4 MG IVP (09:23)
[2024-04-07 10:12] LABS: SARS Covid-2 Antigen negative (Negative)
--- NOTE | 2024-04-07 10:53 | P.DS_ITS ---
Discharge Providers Date of Admission: 04/03/24 15:52 Date of Discharge: April 07, 2024 Attending Provider at Admission: Kuldip Domingo MD Attending Provider at Discharge: Harry Ramirez MD Diagnoses at Discharge Discharge Diagnosis (1) Closed right radial fracture: Status: Acute Qualifiers: Encounter type: initial encounter Fracture morphology: unspecified fracture morphology Radius location: shaft Qualified Code(s): S52.301A - Unspecified fracture of shaft of right radius, initial encounter for closed fracture (2) Distal radius fracture, right: Status: Acute (3) Closed right femoral fracture: Status: Acute Qualifiers: Encounter type: initial encounter Femur location: intertrochanteric Fracture alignment: nondisplaced Qualified Code(s): S72.144A - Nondisplaced intertrochanteric fracture of right femur, initial encounter for closed fracture (4) Closed intertrochanteric fracture of right hip: Status: Acute Qualifiers: Encounter type: initial encounter Fracture alignment: displaced Qualified Code(s): S72.141A - Displaced intertrochanteric fracture of right femur, initial encounter for closed fracture Reason for Visit Reason for Visit: right hip/wrist pain s/p fall Hospital Course Hospital Course 68-year-old female who does not have significant past medical history presented after sustaining a fall at home while she was fixing some [place] on the ceiling while standing on a chair, she lost her balance and fell on the ground. Orthopedic was consulted for management of right femur and right radial fracture. Patient went for surgical intervention 04/[address] Goodrich. Right radial fracture was managed nonoperatively. Patient will be discharged to a skilled nursing with Eliquis as DVT prophylaxis along opioids and bowel regimen. Her blood pressure remained high secondary to pain otherwise it has been consistently below 130 mmHg. She is being discharged with stable hemodynamics, Stephens catheter has been removed She is did well with physical therapy but not able to take care of her self and her at home that is why needing skilled nursing placement at this point Physical Exam Narrative: Right hand covered with the dressing Right hip surgical site without any drainage Pleasant cooperative Euvolemic Urinary Catheter Management: Stephens: Cath Placed During This Visit: yes, but has since been removed by the nurse Reason for Continuing Indwelling Catheter: Decision to DC Catheter Urinary Catheter Date of Insertion: 04/03/24 Urinary Catheter Time of Insertion: 22:42 Date Urinary Catheter Removed: 04/06/24 Time Urinary Catheter Discontinued: 05:18 Discharge Data Studies Completed and Pending Completed Studies During Hospitalization Category Date Time Status XR hip RT 2-3V wo/w pel* [id number] Routine Exams 04/05/24 00:00 Completed XR hip RT 2-3V wo/w pel* [id number] Stat Exams 04/03/24 13:30 Completed XR wrist RT min 3V* [id number] Stat Exams 04/03/24 13:30 Completed Radiology Impressions Wrist X-Ray 04/03/24 13:30 IMPRESSION: Acute fracture through distal 3rd shaft of radius, proximal to plate and screw fixation. Hip/Pelvis X-Ray 04/05/24 00:00 IMPRESSION: Intraoperative fixation RIGHT hip fracture. Laboratory Results WBC 9.61 10^3/uL (3.29-11.43) 04/06/24 04:22 RBC 3.69 10^6/uL (3.85-5.65) L 04/06/24 04:22 Hgb 11.00 g/dL (11.27-16.99) L 04/06/24 04:22 Hct 34.6 % (36-47) L 04/06/24 04:22 MCV 93.8 fl (85-98) 04/06/24 04:22 MCH 29.8 pg (27-33) 04/06/24 04:22 MCHC 31.8 g/dL (30-55) 04/06/24 04:22 RDW 13.2 % (12.1-15.1) 04/06/24 04:22 Plt Count 216 10^3/cmm (157-399) 04/06/24 04:22 MPV 9.9 fL (7.4-10.4) 04/06/24 04:22 Neut % (Auto) 76.9 % 04/06/24 04:22 Lymph % (Auto) 14.0 % 04/06/24 04:22 [place] % (Auto) 8.6 % 04/06/24 04:22 Eos % (Auto) 0.0 % 04/06/24 04:22 Baso % (Auto) 0.1 % 04/06/24 04:22 Neut # (Auto) 7.38 10^3/uL (1.8-7.7) 04/06/24 04:22 Lymph # (Auto) 1.4 10^3/uL (0.8-4.8) 04/06/24 04:22 [place] # (Auto) 0.8 10^3/uL (0.2-0.9) 04/06/24 04:22 Eos # (Auto) 0.0 10^3/uL (0.0-0.8) 04/06/24 04:22 Baso # (Auto) 0.0 10^3/uL (0.0-0.1) 04/06/24 04:22 Nucleated RBC % (auto) 0 % 04/06/24 04:22 Nucleated RBCs # 0.0 /100WBC 04/06/24 04:22 Sodium 135 mmol/L (136-145) L 04/05/24 05:41 Potassium 4.0 mmol/L (3.5-5.1) 04/05/24 05:41 Chloride 101 mmol/L (98-107) 04/05/24 05:41 Carbon Dioxide 26 mmol/L (22-29) 04/05/24 05:41 Anion Gap 12.0 (5-19) 04/05/24 05:41 BUN 14 mg/dL (8-23) 04/05/24 05:41 Creatinine 0.7 mg/dL (0.5-0.9) 04/05/24 05:41 GFR Calculation 82.7 mL/min (90-130) L 04/05/24 05:41 Glucose 138 mg/dL (65-115) H 04/05/24 05:41 Calculated Osmolality 283 mOsm/kg (285-295) L 04/05/24 05:41 Calcium 9.3 mg/dL (8.5-10.5) 04/05/24 05:41 Total Bilirubin 0.5 mg/dL (0.15-1.2) 04/03/24 18:06 AST 48 U/L (0-32) H 04/03/24 18:06 ALT 11 U/L (0-33) 04/03/24 18:06 Alkaline Phosphatase 101 U/L (35-105) 04/03/24 18:06 Total Protein 7.9 g/dL (6.6-8.7) 04/03/24 18:06 Albumin 4.2 g/dL (3.5-5.2) 04/03/24 18:06 Globulin 3.7 g/dL (1.3-4.6) 04/03/24 18:06 SARS-CoV-2 Ag (Rapid) negative (Negative) 04/07/24 09:39 Vitals Last Vital Signs Temp 99.1 F 04/07/24 08:00 Pulse 101 H 04/07/24 08:00 Resp 18 04/07/24 08:00 BP 145/74 04/07/24 08:00 Pulse Ox 93 04/07/24 08:00 O2 Del Method Room Air 04/07/24 08:00 Discharge Plan Discharge Patient Disposition: Xfer SNF Condition: Stable Prescriptions: New lactulose 20 gram/30 mL Solution 10 g PO DAILY PRN (Reason: Constipation) Qty: 1200 0RF Eliquis 5 mg Tablet 2.5 mg PO BID@0900,2100 Qty: 60 0RF oxycodone-acetaminophen 5-325 mg Tablet 1 tab PO Q4H PRN (Reason: Moderate Pain) Qty: 10 0RF docusate sodium 100 mg Capsule 100 mg PO BID Qty: 6 0RF Discharge Orders: Discharge Order (Routine); Ordered 04/07/24 Ordered By: Harry Ramirez Other Ambulatory Orders: DME: [employer] (Order) Location: None Selected Ordered By: Dustin Goodrich DME: Walker (Order) Location: None Selected Ordered By: Dustin Goodrich Referrals: [facility] [Outside] Dustin Goodrich DO [Physician] - 04/20/24 1:00 pm Patient Instructions: Apixaban (By mouth) (Eliquis), Acute Wound Care (DC), Opioid Safety, Post Anesthesia Care Activity Restrictions/Additional Instructions: You are being discharged from the hospital today during which time you have been under the care of Dr. Goodrich. You had a right intertrochanteric hip fracture and a right radius fracture. You were treated for this injury with intramedullary hip nail for the right hip and a splint for the right radius. You may resume you normal diet (including any special diets as directed by your primary doctor) as well as your home medications. You should follow up with you primary doctor if you have any questions regarding medication you took prior to your stay in the hospital. You may take your pain medication as prescribed. After the first few days, take your pain medication as needed. Do not drive or drink alcohol while taking your pain medication. Your injury may increase your risk of developing a blood clot,or DVT, in your arm or leg. This could potentially dislodge and travel to your lungs and become a life threatening condition called apulmonary embolus,or PE. You have been prescribed Eliquis to be taken to prevent this. Frequent movement of the feet will also help prevent this from occurring. If you develop any new or worsening cough, chestpain, bloody sputum or shortness of breath, call 911 or go to the EmergencyRoom. Always keep your surgical incision/dressing clean and dry. If you experience increasing pain at your incision site, redness, swelling, increasing discharge, foul odors, or fevers (greater than 100.4), night sweats or chills you should call the office at the above number. If you feel this is an emergency you should be evaluated in the Emergency Department of a nearby hospital. Orthopedic Patient Instructions Summary: Weight Bearing: Weight-bear as tolerated right lower extremity and nonweightbearing right upper extremity Activity: As tolerated. Diet: Regular. Splint Care: Keep splint clean and dry. Cover with a plastic bag for bathing. Wound Care: Keep dressing clean and dry. Anticoagulation: Eliquis Pain Medication: Take only as needed. Ice, rest and elevation will be of great benefit. Please plan to follow-up shady Goodrich in 2 weeks. You will need to call the clinic [phone] to schedule this visit. Thank you far allowing me to participate in your care. Do not hesitate to call the office with any questions or concerns. Discharge Attestations Time Spent in Discharge Care*: greater than 30 min Quality Metrics Clinical Quality Measures [ No reported AMI, CVA or VTE this stay] Coding Level of Care Code Acute Code for Chg Fwd Diagnoses Closed right radial fracture S52.301A Encounter type: initial encounter Fracture morphology: unspecified fracture morphology Radius location: shaft Distal radius fracture, right S52.501A Closed right femoral fracture S72.144A Encounter type: initial encounter Femur location: intertrochanteric Fracture alignment: nondisplaced Closed displaced intertrochanteric fracture of right femur, initial encounter S72.141A Encounter type: initial encounter Fracture alignment: displaced
--- NOTE | 2024-04-07 11:37 | PM.PN ---
Subjective Subjective: Patient is doing well at this point plans to be discharged to extended-care facility. Vitals/I&O/Wt Last Vital Signs Temp 99.1 F 04/07/24 08:00 Pulse 101 H 04/07/24 08:00 Resp 18 04/07/24 08:00 BP 145/74 04/07/24 08:00 Pulse Ox 93 04/07/24 08:00 O2 Del Method Room Air 04/07/24 08:00 04/06/24 04/07/24 04/07/24 22:59 06:59 14:59 Intake Total 360 / 1200 240 / 1440 Balance 360 / 1200 240 / 1440 Weight last 48 hrs Weight 247 lb Weight 253 lb 9.6 oz Physical Exam Narrative: Patient is wound is clean dry and intact Urinary Catheter Management: Stephens: Cath Placed During This Visit: yes, but has since been removed by the nurse Reason for Continuing Indwelling Catheter: Decision to DC Catheter Urinary Catheter Date of Insertion: 04/03/24 Urinary Catheter Time of Insertion: 22:42 Date Urinary Catheter Removed: 04/06/24 Time Urinary Catheter Discontinued: 05:18 Data 04/06/24 04:22 04/05/24 05:41 A&P Assessment and plan (1) Closed intertrochanteric fracture of right hip: Plan discharged with orthopedics. Patient follow-up in 2 weeks. Qualifiers: Encounter type: initial encounter Fracture alignment: displaced Qualified Code(s): S72.141A - Displaced intertrochanteric fracture of right femur, initial encounter for closed fracture Attestations Medical Necessity Statement*: Per primary service Coding Level of Care Code Acute Code for [facility] Fwd Diagnoses Closed displaced intertrochanteric fracture of right femur, initial encounter S72.141A Encounter type: initial encounter Fracture alignment: displaced
--- NOTE | 2024-04-07 11:46 | PC.SOCIAL ---
IMM Updated Updated pt on IMM. No questions voiced. Provided pt a copy. Initialed, dated, & timed copy in chart.
[2024-04-07 11:47] VITALS: RESP 15
[2024-04-07] MEDS: oxyCODONE-APAP 5-325 mg Tablet 1 TAB PO (11:47)
[2024-04-07 11:54] VITALS: BP 149/65; PULSE 107; RESP 18; TEMP 37.1; O2SAT 95
--- NOTE | 2024-04-07 12:20 | PC.NURSE ---
This nurse called [place] [facility] [place] questions addressed at this time.
[2024-04-07 13:44] VITALS: BP 149/65; PULSE 107; RESP 18; TEMP 37.1; O2SAT 95
== END 2024-04-07 13:42 | disposition skilled nursing facility (03) | DRG 481 ==
LOC: ER 17:45 → MEDSURG 18:27
PROVIDERS: Orthopaedic Surgery; Admitting Provider Family Medicine; Emergency Provider Physician Assistant; Visit Provider Internal Medicine
PROC: 0QH636Z Insertion of Intramedullary Internal Fixation Device into Right Upper Femur, Percutaneous Approach (ICD-10-PCS; CPT 27245; principal; 2024-04-05 15:10)
DX: S72.141A Displaced intertrochanteric fracture of right femur, initial encounter for closed fracture (principal); S52.501A Unspecified fracture of the lower end of right radius, initial encounter for closed fracture; W11.XXXA Fall on and from ladder, initial encounter
CPT/HCPCS: 29125; 36415; 51702; 73110; 73502; 76000; 80048; 80053; 85025; 87426; 93005; 96372; 96374; 96375; 97110; 97116; 97161; 97166; 97530; 99285; C1713; J0690; J1100; J1170; J1644; J2405; J2704; J3010; J3490; J7030

== ENCOUNTER → 2024-04-22 13:45 | Outpatient (BNVA) | payer MEDICARE, OTHER, SELFPAY | PROVIDERS: Visit Provider Orthopaedic Surgery | DX: S72.141A Displaced intertrochanteric fracture of right femur, initial encounter for closed fracture (principal); X58.XXXA Exposure to other specified factors, initial encounter; M25.551 Pain in right hip; M25.531 Pain in right wrist | CPT/HCPCS: 73110; 73502; 99024 ==

== ENCOUNTER 2024-04-22 15:27 | Outpatient (CLI) | payer MEDICARE, OTHER, SELFPAY | END 2024-04-22 15:28 | disposition home or self-care (01) | LOC: SPT 15:28 | PROVIDERS: Visit Provider Orthopaedic Surgery | DX: Z46.89 Encounter for fitting and adjustment of other specified devices (principal); S52.591D Other fractures of lower end of right radius, subsequent encounter for closed fracture with routine healing; X58.XXXD Exposure to other specified factors, subsequent encounter | CPT/HCPCS: 97760; L3982 ==

== ENCOUNTER → 2024-05-06 10:04 | Outpatient (BNVA) | payer MEDICARE, OTHER, SELFPAY | PROVIDERS: Visit Provider Orthopaedic Surgery | DX: Z98.890 Other specified postprocedural states; S72.141A Displaced intertrochanteric fracture of right femur, initial encounter for closed fracture; S52.501A Unspecified fracture of the lower end of right radius, initial encounter for closed fracture; X58.XXXA Exposure to other specified factors, initial encounter; M25.531 Pain in right wrist | CPT/HCPCS: 73110; 73502; 99024 ==

== ENCOUNTER → 2024-06-03 10:00 | Outpatient (BNVA) | payer MEDICARE, OTHER, SELFPAY | PROVIDERS: Visit Provider Orthopaedic Surgery | DX: S72.141A Displaced intertrochanteric fracture of right femur, initial encounter for closed fracture (principal); S52.501A Unspecified fracture of the lower end of right radius, initial encounter for closed fracture; Z48.89 Encounter for other specified surgical aftercare; X58.XXXA Exposure to other specified factors, initial encounter | CPT/HCPCS: 73110; 73502; 99024 ==

== ENCOUNTER → 2024-07-01 10:48 | Outpatient (BNVA) | payer MEDICARE, OTHER, SELFPAY | PROVIDERS: Visit Provider Orthopaedic Surgery | DX: S72.141A Displaced intertrochanteric fracture of right femur, initial encounter for closed fracture (principal); X58.XXXA Exposure to other specified factors, initial encounter; M25.531 Pain in right wrist | CPT/HCPCS: 73110; 73502; 99024 ==